=== PATIENT | male | born 1945 | race Caucasian/White ===

== ENCOUNTER 2017-11-12 05:54 | Inpatient (IN) | payer OTHER, BC ==
[~2017-11-12 05:54] MED LIST: CEFAZOLIN 2 GM in DEXTROSE 5%-WATER - 50 ML IVPB ONE; ROPIVICAINE 0.2%/MORPH PF/KETOROLAC - 51ML DISP.SYRINGE IA ONE; TRANEXAMIC ACID 1000 MG/10 ML VIAL IVPUSH ONE
[2017-11-12] MEDS: GABAPENTIN 300 MG CAPSULE (FP) PO ONE ×2 (06:30→12:43)
[2017-11-12] MEDS: oxyCODONE HCL 10 MG SUSTAINED ACTING TABLET PO ONE ×2 (06:30→12:44)
[2017-11-12] MEDS: CELECOXIB 200 MG CAPSULE PO ONE ×2 (06:30→12:43)
[2017-11-12] MEDS: PANTOPRAZOLE 40 MG TABLET (FP) PO ONE ×2 (06:30→12:46)
[2017-11-12 06:46] VITALS: BMI 17.4
--- NOTE | 2017-11-12 07:07 | HP ---
Admitting History and Physical - Admission Chief Complaint: right knee osteoarthritis x years History of Present Illness: 72-year-old male presenting in regard to his right knee. Long-standing history of right knee osteoarthritis. Patient complains of pain, limited range of motion , difficulty ambulating and difficulties with activities of daily living. Patient has failed conservative treatment options including PO medications, activity modification, exercise program, and injections. As patient has failed conservative treatment measures, patient would like to proceed with surgical intervention - right total knee arthroplasty, MAKOplasty. History Source: Patient - Past Medical History Cardiovascular: Yes: HTN, Hyperlipdemia - Past Surgical History Additional Past Surgical History: See written history & physical. - Smoking History Smoking history: Former smoker Have you smoked in the past 12 months: No If you are a former smoker, when did you quit?: 10 years ago - Alcohol/Substance Use Hx Alcohol Use: Yes (2-3 per day) Home Medications - Allergies Allergies/Adverse Reactions: Allergies Allergy/AdvReac Type Severity Reaction Status Date / Time No Known Allergies Allergy Verified 11/06/17 15:28 - Home Medications Home Medications: Ambulatory Orders Aspirin [ASA -] 81 mg PO DAILY 11/06/17 Atorvastatin Ca [Lipitor] 40 mg PO DAILY 11/06/17 Diclofenac Sodium [Diclofenac Sodium ER] 100 mg PO DAILY 11/06/17 Lisinopril/Hydrochlorothiazide [Lisinopril-Hctz 20-12.5 mg Tab] 1 each PO DAILY 11/06/17 Review of Systems - Review of Systems Musculoskeletal: reports: Crepitus (right knee), Decreased ROM (right knee), Joint Pain (right knee), Joint Swelling (right knee) Physical Examination Vital Signs: Vital Signs Temperature 98.0 F 11/12/17 06:43 Pulse Rate 84 11/12/17 06:43 Respiratory Rate 18 11/12/17 06:43 Blood Pressure 136/71 11/12/17 06:43 O2 Sat by Pulse Oximetry (%) 96 11/12/17 06:57 Constitutional: Yes: Well Nourished, No Distress Eyes: Yes: Conjunctiva Clear HENT: Yes: Atraumatic, Normocephalic Neck: Yes: Supple Cardiovascular: Yes: Regular Rate and Rhythm Respiratory: Yes: Regular Gastrointestinal: Yes: Soft ...Rectal Exam: Yes: Deferred Musculoskeletal: Yes: Joint Stiffness (right knee), Joint Swelling (right knee) Edema: RUE: Trace Assessment/Plan 72-year-old male presenting in regard to his right knee. Long-standing history of right knee osteoarthritis. Patient complains of pain, limited range of motion , difficulty ambulating and difficulties with activities of daily living. Patient has failed conservative treatment options including PO medication, activity modification, exercise program, and injections. As patient has failed conservative treatment measures, patient would like to proceed with surgical intervention. Pros, cons, risks, benefits, and alternatives of a right total knee arthroplasty, MAKOplasty were discussed at length with the patient. Patient confirms his understanding, and consents to proceed with a right total knee arthroplasty, MAKOplasty.
[2017-11-12] MEDS ORDERED: MIDAZOLAM HCL 2 MG/2 ML SINGLE DOSE VIAL ONE (07:35)
[2017-11-12] MEDS ORDERED: BUPIVACAINE LIPOSOME/PF (EXPAREL) 266 MG/20 ML VIAL ONE (07:35)
[2017-11-12] MEDS ORDERED: SODIUM CHLORIDE 0.9% P/F 10 ML VIAL IJ ONE (07:35)
[2017-11-12] MEDS ORDERED: BUPIVACAINE HCL/PF (5 MG/ML) 30 ML VIAL IJ ONE (07:35)
[2017-11-12] MEDS ORDERED: ROPIVICAINE 0.2%/MORPH PF/KETOROLAC - 51ML DISP.SYRINGE IA ONE ×2 (09:14→11:00)
[2017-11-12] MEDS ORDERED: TRANEXAMIC ACID 1000 MG/10 ML VIAL IVPB ONE ×2 (09:15→11:01)
[2017-11-12] MEDS ORDERED: VANCOMYCIN 1,000 MG VIAL (RESTRICTED TO ID ONLY) IVPB ONE ×2 (09:16→11:02)
[2017-11-12] MEDS ORDERED: KETOROLAC TROMETHAMINE 30 MG/1 ML VIAL ONE (11:58)
[2017-11-12] MEDS ORDERED: ACETAMINOPHEN INJECTION 100 ML IVPB ONE (11:58)
[2017-11-12] MEDS ORDERED: traMADol HCL 50 MG TABLET ONE (11:58)
--- NOTE | 2017-11-12 12:20 | OP ---
Operative Note - Note: Operative Date: 11/12/17 Pre-Operative Diagnosis: Right knee OA Operation: Right TKA Post-Operative Diagnosis: Same as Pre-op Surgeon: Gulshan Andersen Conveyor Worker: Thu Molina Anesthesia: Spinal Estimated Blood Loss (mls): 100
[2017-11-12] MEDS ORDERED: MAG HYDROX/AL HYDROX/SIMETH 30 ML UNIT-DOSE CUP PO PRN (12:22)
[2017-11-12] MEDS ORDERED: ONDANSETRON 4 MG/2 ML VIAL IVPUSH PRN (12:22)
[2017-11-12] MEDS ORDERED: MAGNESIUM HYDROX 2400MG/30ML ORAL SUSPENSION 30 ML CUP PO PRN (12:22)
[2017-11-12] MEDS ORDERED: LACTATED RINGERS SOLUTION 1,000 ML IV SCH (12:30)
[2017-11-12] MEDS: KETOROLAC TROMETHAMINE 30 MG/1 ML VIAL IVPUSH SCH ×3 (12:31→18:04)
[2017-11-12] MEDS: traMADol HCL 50 MG TABLET PO SCH ×3 (12:31→18:05)
[2017-11-12] MEDS: ACETAMINOPHEN 1000 MG/100 ML VIAL (NON FORMULARY) IVPB ONE ×2 (12:33→13:39)
[2017-11-12] MEDS ORDERED: oxyCODONE HCL 5 MG TABLET PO PRN ×2 (13:56)
[2017-11-12] MEDS: ACETAMINOPHEN 325 MG TABLET (FP) PO SCH ×2 (15:05→20:32)
[2017-11-12] MEDS: CEFAZOLIN 2 GM/D5W 2 GM/50 ML ML IVPB SCH (18:10)
[2017-11-12] MEDS ORDERED: DEXAMETHASONE SOD PHOSPHATE 10 MG/1 ML VIAL IVPB ONE (20:00)
[2017-11-12] MEDS: CELECOXIB 200 MG CAPSULE PO SCH (21:33)
[2017-11-12] MEDS: oxyCODONE HCL 10 MG SUSTAINED ACTING TABLET PO SCH (21:33)
[2017-11-12] MEDS: SENNOSIDES/DOCUSATE COMBO (SENNA PLUS) TABLET (UD) PO SCH (21:33)
[2017-11-12] MEDS: GABAPENTIN 300 MG CAPSULE (FP) PO SCH (21:33)
[2017-11-12] MEDS: ASCORBIC ACID 500 MG TABLET (FP) PO SCH (21:33)
[2017-11-13] MEDS: KETOROLAC TROMETHAMINE 30 MG/1 ML VIAL IVPUSH SCH ×2 (01:12→06:16)
[2017-11-13] MEDS: traMADol HCL 50 MG TABLET PO SCH ×4 (01:12→17:32)
[2017-11-13] MEDS: CEFAZOLIN 2 GM/D5W 2 GM/50 ML ML IVPB SCH (01:13)
[2017-11-13] MEDS: ACETAMINOPHEN 325 MG TABLET (FP) PO SCH ×4 (01:13→19:54)
[2017-11-13 08:53] LABS: ANION GAP 4 (8-16); BLOOD UREA NITROGEN 29 mg/dl (7-18); CALCIUM 8.5 mg/dl (8.4-10.2); CHLORIDE 101 mmol/L (98-107); CO2 24 mmol/L (22-28); CREATININE 1.6 mg/dl (0.6-1.3); GLUCOSE,RANDOM 150 mg/dl (74-106); POTASSIUM 4.6 mmol/L (3.5-5.1); SODIUM 129 mmol/L (136-145)
[2017-11-13 08:59] LABS: HEMATOCRIT 32.7 % (35.4-49); HEMOGLOBIN 11.1 GM/dl (11.7-16.9); MEAN CELL VOLUME 94.2 fl (80-96); MEAN PLT VOLUME 9.5 fl (7.5-11.1); PLATELET COUNT 238 K/MM3 (134-434); RBC 3.47 M/mm3 (4.00-5.60); RDW 12.1 % (11.9-15.9); WHITE BLOOD COUNT 10.3 K/mm3 (4.0-10.8)
[2017-11-13] MEDS: PANTOPRAZOLE 40 MG TABLET (FP) PO SCH (09:29)
[2017-11-13] MEDS: ASPIRIN 325 MG ENTERIC COATED TABLET (FP) PO SCH (09:31)
[2017-11-13] MEDS: GABAPENTIN 300 MG CAPSULE (FP) PO SCH ×2 (09:31→21:25)
[2017-11-13] MEDS: HYDROCHLOROTHIAZIDE 12.5 MG CAPSULE (FP) PO SCH (09:31)
[2017-11-13] MEDS: LISINOPRIL 20 MG TABLET (FP) PO SCH (09:31)
[2017-11-13] MEDS: MULTIVITAMINS (DAILY MVI) TABLET (FP) PO SCH (09:31)
[2017-11-13] MEDS: ASCORBIC ACID 500 MG TABLET (FP) PO SCH ×2 (09:31→21:26)
[2017-11-13] MEDS: CELECOXIB 200 MG CAPSULE PO SCH (09:31)
[2017-11-13] MEDS: SENNOSIDES/DOCUSATE COMBO (SENNA PLUS) TABLET (UD) PO SCH ×2 (09:33→21:25)
[2017-11-13] MEDS: oxyCODONE HCL 10 MG SUSTAINED ACTING TABLET PO SCH ×2 (09:35→21:26)
[2017-11-13] MEDS ORDERED: PATIENT'S OWN MEDICATION (NON-FORMULARY) (Lisinopril/Hydrochlorothiazide [Lisinopril-Hctz PO SCH (10:00)
--- NOTE | 2017-11-13 10:44 | PN ---
Progress Note, Physician Chief Complaint: day #1 s/p right TKR - Current Medication List Current Medications: Active Medications Acetaminophen (Tylenol -) 650 mg PO Q6H [facility] Stop: 11/15/17 13:59 Last Admin: 11/13/17 08:06 Dose: Not Given Al Hydroxide/Mg Hydroxide (Mylanta Oral Suspension -) 30 ml PO Q4H PRN PRN Reason: DYSPEPSIA Ascorbic Acid (Vitamin C -) 500 mg PO BID [facility] Last Admin: 11/13/17 09:31 Dose: 500 mg Aspirin (Ecotrin -) 325 mg PO DAILY [facility] Last Admin: 11/13/17 09:31 Dose: 325 mg Atorvastatin Calcium (Lipitor -) 40 mg PO [facility] Celecoxib (Celebrex -) 200 mg PO BID [facility] Last Admin: 11/13/17 09:31 Dose: 200 mg Gabapentin (Neurontin -) 300 mg PO BID [facility] Stop: 11/15/17 21:59 Last Admin: 11/13/17 09:31 Dose: 300 mg Hydrochlorothiazide (Hctz -) 12.5 mg PO DAILY [facility] Last Admin: 11/13/17 09:31 Dose: 12.5 mg Lisinopril (Prinivil) 20 mg PO DAILY [facility] Last Admin: 11/13/17 09:31 Dose: 20 mg Magnesium Hydroxide (Milk Of Magnesia -) 30 ml PO PRN PRN PRN Reason: CONSTIPATION Multivitamins/Minerals/Vitamin C (Tab-A-Vit -) 1 tab PO DAILY [facility] Last Admin: 11/13/17 09:31 Dose: 1 tab Ondansetron HCl (Zofran Injection) 4 mg IVPUSH Q6H PRN PRN Reason: NAUSEA Oxycodone HCl (Roxicodone -) 5 mg PO Q3H PRN PRN Reason: PAIN LEVEL 1-5 Oxycodone HCl (Roxicodone -) 10 mg PO Q3H PRN PRN Reason: PAIN LEVEL 6-10 Oxycodone HCl (Oxycontin -) 10 mg PO BID [facility] Stop: 11/15/17 13:56 Last Admin: 11/13/17 09:35 Dose: 10 mg Pantoprazole Sodium (Protonix -) 40 mg PO DAILY [facility] Last Admin: 11/13/17 09:29 Dose: 40 mg Senna/Docusate Sodium (Pericolace -) 2 tablet PO BID [facility] Last Admin: 11/13/17 09:33 Dose: 2 tablet Tramadol HCl (Ultram -) 50 mg PO Q6H [facility] Last Admin: 11/13/17 06:16 Dose: 50 mg - Objective Vital Signs: Vital Signs Temperature 98.0 F 11/13/17 06:34 Pulse Rate 80 11/13/17 06:34 Respiratory Rate 18 11/13/17 06:34 Blood Pressure 138/76 11/13/17 06:34 O2 Sat by Pulse Oximetry (%) 96 11/13/17 06:34 Labs: CBC, BMP 11/13/17 08:16 11/13/17 08:16 Assessment/Plan Ambulating- doing well. Pain is minimal, likely d/c today
[2017-11-13] MEDS ORDERED: ATORVASTATIN CA 40 MG TABLET (FP) PO SCH (22:00)
--- NOTE | 2017-11-13 22:38 | PN ---
Progress Note (short form) - Note Progress Note: Pt seen and examined. Doing well AVSS Selected Entries 11/13/17 20:18 Temperature 98.4 F Pulse Rate 66 Respiratory 18 Rate Blood Pressure 117/52 Laboratory Tests 11/13/17 11/13/17 08:16 08:16 WBC 10.3 Hgb 11.1 L Hct 32.7 L Plt Count 238 Sodium 129 L Potassium 4.6 Chloride 101 Carbon Dioxide 24 Anion Gap 4 L BUN 29 H Creatinine 1.6 H Random Glucose 150 H Gen: NAD RLE: c/d/i, NVID A/P s/p R TKA PT/OOB D/C in AM after PT
--- NOTE | 2017-11-13 22:43 | DS ---
Physical Examination Vital Signs: Vital Signs Temperature 98.4 F 11/13/17 20:18 Pulse Rate 66 11/13/17 20:18 Respiratory Rate 18 11/13/17 20:18 Blood Pressure 117/52 11/13/17 20:18 O2 Sat by Pulse Oximetry (%) 97 11/13/17 19:59 Labs: CBC, BMP 11/13/17 08:16 11/13/17 08:16 Discharge Summary Reason For Visit: RIGHT KNEE OSTEOARTHRITIS Current Active Problems Osteoarthritis of right knee (Acute) Procedures: Principal: right JAVIER TKA Hospital Course: Admitted for elective surgery. Procedure performed without complications. Pt received postoperative antibiotic prophylaxis and DVT ppx. Ambulated with physical therapy. Stable for discharge home with outpatient followup. Condition: Stable - Instructions Diet, Activity, Other Instructions: Dr. Andersen - Knee Replacement Instructions Keep the Aquacel dressing on until removed by Dr. Andersen in 10-14 days - it is antibacterial and waterproof and you can shower with it on. Call the office for a follow-up appointment with Dr. Andersen in 10-14 days. Take one Aspirin 325mg daily for 6 weeks to prevent blood clots in your legs. After 6 weeks go back to taking 81mg daily. Take Pantoprazole 40mg daily for 6 weeks to protect against heartburn and ulcers. Take Cephalexin (antibiotic) 3x/day for 10 days to help prevent skin infection. Take Celebrex 200mg once daily for 30 days to reduce swelling and inflammation. Take a multivitamin, stool softener, and extra vitamin C supplement daily. For pain: *Mild pain (1-3/10): Take 1 Tramadol tablet every 4 hours as needed. Moderate pain (4-6/10): Take 1 Tramadol tablet and 1 Percocet tablet every 4 hours as needed. Severe pain (7-10/10): Take 1 Tramadol tablet and 2 Percocet tablets every 4 hours as needed. Activity: You can put as much weight on the operative leg as you want. Right after you get home, there will be a physical therapist coming to your house to help you walk around and bend/straighten your knee. After your follow-up appointment, you will be sent for more intensive outpatient physical therapy which will include machines and equipment that the home therapist cannot bring to your house. Always use a walker or cane for balance and to prevent falls. Expect to see swelling/bruising from the operative site all the way down to your toes. Wear the compression stocking on the operative side during the day to minimize how much swelling there is in your foot/ankle. Don't wear the stocking at night. You don't have to wear a stocking on the other side. Disposition: [facility]NS/HOME HEALTH CARE - Home Medications Comprehensive Discharge Medication List: Ambulatory Orders Atorvastatin Ca [Lipitor] 40 mg PO DAILY 11/06/17 Diclofenac Sodium [Diclofenac Sodium ER] 100 mg PO DAILY 11/06/17 Lisinopril/Hydrochlorothiazide [Lisinopril-Hctz 20-12.5 mg Tab] 1 each PO DAILY 11/06/17 Ascorbic Acid [Vitamin C -] 500 mg PO BID tablet 11/13/17 Aspirin Coated [Ecotrin -] 325 mg PO DAILY tablet. 11/13/17 Cephalexin Monohydrate [Keflex -] 500 mg PO TID #30 capsule 11/13/17 Multivitamins [Multivit ([facility] Formulary)] 1 tab PO DAILY tab 11/13/17 Oxycodone HCl/Acetaminophen [Percocet 5-325 mg Tablet] 1 - 2 tab PO Q4H PRN #60 tablet MDD 10 11/13/17 Pantoprazole Sodium [Protonix -] 40 mg PO DAILY #40 tablet.ec 11/13/17 Sennosides/Docusate Sodium [Pericolace -] 2 tablet PO BID tablet 11/13/17 traMADol HCL [Ultram -] 50 mg PO Q4H PRN #42 tablet MDD 7 11/13/17
[2017-11-14] MEDS: traMADol HCL 50 MG TABLET PO SCH ×2 (02:03→05:52)
[2017-11-14] MEDS: ACETAMINOPHEN 325 MG TABLET (FP) PO SCH ×2 (05:50→08:44)
[2017-11-14 09:11] VITALS: BP 100/47; PULSE 85; TEMP 98.6
[2017-11-14] MEDS: ASCORBIC ACID 500 MG TABLET (FP) PO SCH (10:16)
[2017-11-14] MEDS: MULTIVITAMINS (DAILY MVI) TABLET (FP) PO SCH (10:16)
[2017-11-14] MEDS: SENNOSIDES/DOCUSATE COMBO (SENNA PLUS) TABLET (UD) PO SCH (10:16)
[2017-11-14] MEDS: PANTOPRAZOLE 40 MG TABLET (FP) PO SCH (10:16)
[2017-11-14] MEDS: LISINOPRIL 20 MG TABLET (FP) PO SCH (10:16)
[2017-11-14] MEDS: HYDROCHLOROTHIAZIDE 12.5 MG CAPSULE (FP) PO SCH (10:16)
[2017-11-14] MEDS: oxyCODONE HCL 10 MG SUSTAINED ACTING TABLET PO SCH (10:16)
[2017-11-14] MEDS: ASPIRIN 325 MG ENTERIC COATED TABLET (FP) PO SCH (10:16)
[2017-11-14] MEDS: GABAPENTIN 300 MG CAPSULE (FP) PO SCH (10:16)
--- NOTE | 2017-11-16 17:04 | PATH ---
Surgical Pathology Report Patient Name: KHAI RAGSDALE Med. Rec. #: [id number] /Age/Gender: 1945 (Age: 72) / M Account: [id number] Location: [facility] [place] MED-SURG Taken: 11/12/2017 Received: 11/13/2017 Reported: 11/16/2017 Physicians: Gulshan Andersen M.D. Specimen(s) Received RIGHT KNEE BONE Clinical History Right knee osteoarthritis Final Diagnosis BONE, KNEE, RIGHT, TOTAL KNEE REPLACEMENT MAKOPLASTY: BONE WITH DEGENERATIVE JOINT DISEASE AND DENSE FIBROCONNECTIVE TISSUE. Electronically Signed Chely Johnson M.D. Gross Description Received in formalin labeled "right knee bones" is a 10 x 9 x 2 cm aggregate of multiple portions of bone and soft tissue. The tibial plateau measures 8 x 6 x 1 cm. There are focal areas of eburnation identified. The articular surface is de souza-yellow and diffusely granular. The underlying trabecular bone is yellow and hard. [employer] Professor sections submitted in one cassette, following decalcification. REGINA/11/14/2017 kishan/11/14/2017
== END 2017-11-14 13:00 | disposition home health service (06) | DRG 470 ==
LOC: FM/S 05:54
PROVIDERS: ADMIT Student in an Organized Health Care Education/Training Program; ATTEND Student in an Organized Health Care Education/Training Program
PROC: 8E0Y0CZ Robotic Assisted Procedure of Lower Extremity, Open Approach (ICD-10-PCS; 2017-11-12)
PROC: 0SRC0JZ Replacement of Right Knee Joint with Synthetic Substitute, Open Approach (ICD-10-PCS; principal; 2017-11-12 09:05)
DX: M17.11 Unilateral primary osteoarthritis, right knee (principal); I10 Essential (primary) hypertension; E78.5 Hyperlipidemia, unspecified; Z87.891 Personal history of nicotine dependence
CPT/HCPCS: 36415; 73560-TC-RT-FY; 80048; 85027; 88304-TC; 88311-TC; 94760; 97116-GP; 97162-GP; J0131; J1100

== ENCOUNTER 2018-10-25 09:50 | Emergency (ER) | payer OTHER, BC ==
[2018-10-25 10:28] VITALS: BP 140/73; PULSE 92; TEMP 98.8; BMI 30.9
[2018-10-25] MEDS ORDERED: FAMOTIDINE 20 MG TABLET PO ONE (11:16)
[2018-10-25] MEDS ORDERED: LORATADINE 10 MG TABLET PO ONE (11:16)
[2018-10-25] MEDS ORDERED: predniSONE 20 MG TABLET (UD) PO ONE (11:16)
--- NOTE | 2018-10-25 11:22 | PDOC ---
History of Present Illness - General Chief Complaint: Edema Stated Complaint: LIP & R FACE SWELLING Time Seen by Provider: 10/25/18 10:24 Past History - Past Medical History Allergies/Adverse Reactions: Allergies Allergy/AdvReac Type Severity Reaction Status Date / Time No Known Allergies Allergy Verified 10/25/18 10:17 Home Medications: Ambulatory Orders Atorvastatin Ca [Lipitor] 40 mg PO DAILY 11/06/17 Lisinopril/Hydrochlorothiazide [Lisinopril-Hctz 20-12.5 mg Tab] 1 each PO DAILY 11/06/17 Methylprednisolone [Medrol Dose Camilo] 4 mg PO ASDIR #21 tablet 10/25/18 Anemia: No Asthma: No Cancer: No Cardiac Disorders: No CVA: No COPD: No CHF: No Dementia: No Diabetes: No GI Disorders: No Disorders: No HTN: Yes Hypercholesterolemia: Yes Liver Disease: No Seizures: No Thyroid Disease: No - Surgical History Appendectomy: Yes Orthopedic Surgery: Yes (right and left knee arthroscopy) - Suicide/Smoking/Psychosocial Hx Smoking History: Former smoker Have you smoked in the past 12 months: No If you are a former smoker, when did you quit?: 10 years ago Information on smoking cessation initiated: No Hx Alcohol Use: Yes (DAILY) Drug/Substance Use Hx: No Substance Use Type: Alcohol Hx Substance Use Treatment: No *Physical Exam - Vital Signs Last Vital Signs Temp Pulse Resp BP Pulse Ox 98.8 F 92 H 16 140/73 97 10/25/18 10:05 10/25/18 10:05 10/25/18 10:05 10/25/18 10:05 10/25/18 10:05 *DC/Admit/Observation/Transfer Diagnosis at time of Disposition: Allergic reaction Qualifiers: Encounter type: initial encounter Qualified Code(s): T78.40XA - Allergy, unspecified, initial encounter - Discharge Dispostion Disposition: HOME Condition at time of disposition: Stable Decision to Admit order: No - Referrals Referrals: Zeynep Ball MD [Primary Care Provider] - 24 hours - Patient Instructions Printed Discharge Instructions: DI for General Allergic Reactions Additional Instructions: Claritin 10 mg once daily in the morning Benadryl 25 mg at bedtime Pepcid (famotidine) 20 mg every 12 hours Medrol Dosepak as prescribed Return to ER immediately if there is increased swelling or irritation of the throat, tongue, inside of the mouth, lips, or other parts of the face,, or difficulty swallowing or breathing. Or if there is wheezing or noisy breathing. - Post Discharge Activity
[2018-10-25] MEDS ORDERED: predniSONE 20 MG TABLET (UD) ONE (11:28)
[2018-10-25] MEDS ORDERED: LORATADINE 10 MG TABLET ONE (11:28)
[2018-10-25] MEDS ORDERED: FAMOTIDINE 20 MG TABLET ONE (11:28)
== END 2018-10-25 11:36 | disposition home or self-care (01) ==
LOC: FER 09:50
DX: T78.40XA Allergy, unspecified, initial encounter (principal); Z87.891 Personal history of nicotine dependence; I10 Essential (primary) hypertension; E78.00 Pure hypercholesterolemia, unspecified
CPT/HCPCS: 99282-25

== ENCOUNTER 2019-06-23 09:04 | Inpatient (IN) | payer OTHER, BC ==
[2019-06-09 12:15] VITALS: BMI 31.5
--- NOTE | 2019-06-23 07:43 | HP ---
Admitting History and Physical - Admission Chief Complaint: left knee osteoarthritis x years History of Present Illness: 74 year old male presents in regard to their left knee. Long-standing history of left knee osteoarthritis. Patient complains of pain, limited range of motion , difficulty ambulating, and difficulty with activities of daily living. Patient has failed conservative treatment options including PO medications, activity modification, injections, and exercise programs. At this point, patient like to proceed with surgical intervention, left total knee arthroplasty MAKOplasty. History Source: Patient - Past Medical History Cardiovascular: Yes: HTN, Hyperlipdemia Musculoskeletal: Yes: Osteoarthritis - Past Surgical History Additional Past Surgical History: See written history & physical. - Smoking History Smoking history: Former smoker Have you smoked in the past 12 months: No Aproximately how many cigarettes per day: 20 If you are a former smoker, when did you quit?: 10 years ago - Alcohol/Substance Use Hx Alcohol Use: Yes (DAILY) Home Medications - Allergies Allergies/Adverse Reactions: Allergies Allergy/AdvReac Type Severity Reaction Status Date / Time No Known Allergies Allergy Verified 06/09/19 12:05 - Home Medications Home Medications: Ambulatory Orders Atorvastatin Ca [Lipitor] 40 mg PO DAILY 11/06/17 Lisinopril/Hydrochlorothiazide [Lisinopril-Hctz 20-12.5 mg Tab] 1 each PO DAILY 11/06/17 Review of Systems - Review of Systems Musculoskeletal: reports: Crepitus (left knee), Decreased ROM (left knee), Joint Pain (left knee), Joint Swelling (left knee) Physical Examination Constitutional: Yes: Well Nourished, No Distress Eyes: Yes: Conjunctiva Clear HENT: Yes: Atraumatic Neck: Yes: Supple Cardiovascular: Yes: Regular Rate and Rhythm Respiratory: Yes: Regular Gastrointestinal: Yes: Soft ...Rectal Exam: Yes: Deferred Musculoskeletal: Yes: Joint Stiffness (left knee), Joint Swelling (left knee) Assessment/Plan 74 year old male presents in regard to their left knee. Long-standing history of left knee osteoarthritis. Patient complains of pain, limited range of motion , difficulty ambulating, and difficulty with activities of daily living. Patient has failed conservative treatment options including PO medications, activity modification, injections, and exercise programs. At this point, patient like to proceed with surgical intervention, left total knee arthroplasty MAKOplasty. Pros, cons, risks, benefits, and alternatives of a left total knee arthroplasty MAKOplasty were discussed with the patient at length. Patient confirms their understanding and consents to proceed with a left total knee arthroplasty MAKOplasty.
[~2019-06-23 09:04] MED LIST changes: +CELECOXIB 200 MG CAPSULE PO ONE; +PANTOPRAZOLE 40 MG TABLET (FP) PO ONE; -ROPIVICAINE 0.2%/MORPH PF/KETOROLAC - 51ML DISP.SYRINGE IA ONE
[2019-06-23] MEDS: oxyCODONE HCL 10 MG SUSTAINED ACTING TABLET PO ONE ×2 (10:15→17:40)
[2019-06-23] MEDS ORDERED: CELECOXIB 200 MG CAPSULE PO ONE (10:24)
[2019-06-23] MEDS ORDERED: TRANEXAMIC ACID 1000 MG/10 ML VIAL IVPUSH ONE (10:24)
[2019-06-23] MEDS ORDERED: GABAPENTIN 300 MG CAPSULE (FP) PO ONE (10:24)
[2019-06-23] MEDS ORDERED: CEFAZOLIN 2 GM in DEXTROSE 5%-WATER - 50 ML IVPB ONE (10:24)
[2019-06-23] MEDS ORDERED: BUPIVACAINE LIPOSOME/PF (EXPAREL) 266 MG/20 ML VIAL ONE (11:11)
[2019-06-23] MEDS ORDERED: MIDAZOLAM HCL 2 MG/2 ML SINGLE DOSE VIAL ONE (11:11)
[2019-06-23] MEDS ORDERED: SODIUM CHLORIDE 0.9% P/F 10 ML VIAL IJ ONE (11:12)
[2019-06-23] MEDS ORDERED: PROPOFOL 20 ML ONE ×3 (11:16)
[2019-06-23] MEDS ORDERED: ceFAZolin SODIUM 1 GM VIAL ONE (11:16)
[2019-06-23] MEDS ORDERED: VANCOMYCIN 1,000 MG VIAL (RESTRICTED TO ID ONLY) ONE (11:16)
[2019-06-23] MEDS ORDERED: fentaNYL CITRATE 250 MCG/5 ML VIAL ONE (11:37)
[2019-06-23] MEDS ORDERED: ePHEDrine SULFATE 50 MG/1 ML AMPULE ONE (13:46)
[2019-06-23] MEDS ORDERED: ONDANSETRON 4 MG/2 ML VIAL IVPUSH PRN ×2 (14:55→17:12)
[2019-06-23] MEDS ORDERED: oxyCODONE HCL 5 MG TABLET PO PRN ×2 (14:56)
[2019-06-23] MEDS ORDERED: LACTATED RINGERS SOLUTION 1,000 ML IV SCH ×2 (15:00→17:15)
--- NOTE | 2019-06-23 16:54 | SURG ---
Surgery Jack Prizer Note Jack Prizer: Alexandro Brush PA-C Date of Service: 06/23/19 Diagnosis: Left knee osteoarthritis Procedure: Left total knee farzaneh assisted arthroplasty I was present for the entirety of the operative procedure. For further detail, please refer to operative report. Visit type - Case Type Case Type: Scheduled - Emergency Emergency Visit: No - New patient This patient is new to me today: Yes Date on this admission: 06/23/19 - Critical Care Critical Care patient: No
[2019-06-23] MEDS: ACETAMINOPHEN 1000 MG/100 ML VIAL (NON FORMULARY) IVPB ONE (16:58)
[2019-06-23] MEDS ORDERED: ACETAMINOPHEN INJECTION 100 ML IVPB ONE (17:05)
[2019-06-23] MEDS ORDERED: KETOROLAC TROMETHAMINE 30 MG/1 ML VIAL ONE (17:05)
[2019-06-23] MEDS: KETOROLAC TROMETHAMINE 30 MG/1 ML VIAL IVPUSH SCH ×2 (17:05→23:22)
[2019-06-23] MEDS ORDERED: traMADol HCL 50 MG TABLET ONE (17:05)
[2019-06-23] MEDS ORDERED: MAGNESIUM HYDROX 2400MG/30ML ORAL SUSPENSION 30 ML CUP PO PRN (17:12)
[2019-06-23] MEDS ORDERED: MAG HYDROX/AL HYDROX/SIMETH 30 ML UNIT-DOSE CUP PO PRN (17:12)
--- NOTE | 2019-06-23 17:34 | OP ---
Operative Note - Note: Operative Date: 06/23/19 Pre-Operative Diagnosis: left knee OA Operation: Left JAVIER TKA Post-Operative Diagnosis: Same as Pre-op Surgeon: Gulshan Andersen Digital Art Director: Alexandro Brush Anesthesia: Spinal Estimated Blood Loss (mls): 200
[2019-06-23] MEDS: traMADol HCL 50 MG TABLET PO SCH ×2 (17:45→23:22)
[2019-06-23] MEDS: CEFAZOLIN 1 GM/D5W 1 GM/50 ML BAG IVPB SCH (17:58)
[2019-06-23] MEDS: ACETAMINOPHEN 325 MG TABLET (FP) PO SCH (21:15)
[2019-06-23] MEDS: GABAPENTIN 300 MG CAPSULE (FP) PO SCH (21:17)
[2019-06-23] MEDS: CELECOXIB 200 MG CAPSULE PO SCH (21:17)
[2019-06-23] MEDS: SENNOSIDES/DOCUSATE COMBO (SENNA PLUS) TABLET (UD) PO SCH (21:18)
[2019-06-23] MEDS: ASCORBIC ACID 500 MG TABLET (FP) PO SCH (21:18)
--- NOTE | 2019-06-23 21:39 | SPEC ---
DATE OF OPERATION: 06/23/2019 PREOPERATIVE DIAGNOSIS: Left knee osteoarthritis. POSTOPERATIVE DIAGNOSIS: Left knee osteoarthritis. PROCEDURE: Left total knee replacement with MAKOplasty robotic navigation. ATTENDING: Melany Corrigan MD GENERAL MILLING SUPERINTENDENT: Alexandro Brush PA-C ANESTHESIA: Spinal plus sedation. ESTIMATED BLOOD LOSS: 200 mL. COMPLICATIONS: None. DISPOSITION: The patient was transferred to the PACU in stable condition. IMPLANTS USED: Charley Triathlon size 8 femoral component, size 7 tibial component, 38-mm patellar component, an 11-mm posterior-stabilized polyethylene component. INDICATIONS: This is a 74-year-old male who presented to the office complaining of severe bilateral knee pain. He was seen and examined by Dr. Corrigan and diagnosed with severe bilateral knee osteoarthritis. The patient was initially treated non-operatively with injections and medications and physical therapy, but continued to have severe pain and ambulatory dysfunction. He was, therefore, indicated for total knee replacements. He underwent a right total knee replacement in 2018 and did very well postoperatively. His left knee continued to be symptomatic; so, eventually, he decided to proceed with a left total knee replacement. The risks, benefits, and alternatives to this procedure were explained to the patient in great detail, and he elected to proceed with the surgery. On the day of surgery, the patient was taken to the operating room and placed on the OR table. Spinal anesthesia was administered by the anesthesiologist. The patient was then positioned supine on the table and all bony prominences were padded. The knee was then prepped and draped in the usual sterile fashion and intravenous antibiotics were given for infection prophylaxis. A surgical time-out was then performed with the team, and the patients identity, procedure, side, availability of implants, and the administration of antibiotics was confirmed. With the knee flexed, a midline incision was made and carried down through the subcutaneous fat to the underlying retinaculum. A medial parapatellar arthrotomy was performed. This was followed by a subperiosteal dissection of the tissue off the proximal, medial tibia. A portion of fat pad was removed from under the patellar tendon, and a small portion of fat was excised off the distal supracondylar femur. Electrocautery and an Aquamantys bipolar sealing device were used to achieve hemostasis. The knee was then flexed further and the anterior horn of the lateral meniscus was released from the midline. Next, the anterior and posterior cruciate ligaments were transected. Grade 4 changes were noted diffusely throughout the knee. Femoral and tibial checkpoints were then placed in the appropriate location using a mallet. Two parallel bicortical self-drilling pins were placed in the tibial diaphysis after making stab incisions and bluntly dissecting down to bone. Two pins were then placed in the distal supracondylar femur. The [employer] navigation arrays were then attached to both the femoral and tibial pins and the lower extremity was then registered to the robotic navigation device using various joint movements, as well as inputting several dozen reference points. The knee was then taken through a full range of motion with a corrective force applied. Alignment in varus/valgus as well as flexion/extension and soft tissue balance was measured in various positions. The navigation device showed a numerical and graphic representation of the soft tissue balance. The components were repositioned virtually using the software until optimal soft tissue balance was achieved on screen. Once this was accomplished, the final plan was saved and sent to the robot. Self-retaining retractors were then placed at the joint line for exposure and protection of the collateral ligaments. The robot was brought into the sterile field and registered with the navigation device. The robotic arm with attached oscillating saw blade was then used to perform femoral and tibial bone cuts as per the saved software plan. The femoral box cut was made using the appropriately sized manual cutting guide. The knee was then irrigated. Trial components were placed and the knee was taken through a full range of motion to assess soft tissue balance and alignment. The range of motion was found to be excellent and the soft tissue balance was optimal and according to plan. The knee was then put into extension and the patella everted. The synovium around the patella was circumscribed with electrocautery. A caliper was used to measure the patellar thickness and a saw was then used to resect the patella at the chondro-osseous junction. The cut surface was then sized and drilled for the appropriate patellar button, with care taken to medialize it. A trial patella was then placed and the knee was again taken through a full range of motion. The knee was found to have both good balance and good patellar tracking. All of the components were removed except the tibial base plate. The appropriate instrumentation was used to drill and punch the proximal tibia for the keel of the final component. All bony surfaces were then cleaned with pulsatile lavage and dried. Bone cement was then prepared on the back table, and final components were cemented in place in the usual fashion. Extruded cement was removed. The polyethylene trial was placed, the knee was put into extension, and axial pressure was applied for compression while the cement hardened. The patellar button was similarly cemented into place. Once the cement had hardened, the knee was taken through a full range of motion to assess stability, balance, and patellar tracking. This was found to be optimal and the trial polyethylene was exchanged for the appropriately sized real implant. The wound was then thoroughly irrigated with normal saline. A 3-minute dilute Betadine lavage was performed. The knee was again irrigated using a pulsatile lavage device. A periarticular injection was used to locally infiltrate the capsular tissues surrounding the implant and prosthesis. Then No. 1 Polysorb and 0 VLoc 180 barbed sutures were used to close the arthrotomy. Then No. 1 Polysorb and 2-0 VLoc 90 sutures were used in the subcutaneous tissues. Then 4-0 undyed Vicryl and Dermabond skin adhesive was used to close the stab incisions made for the navigation pins. The skin was closed using both 3-0 VLoc 90 suture in a running subcuticular fashion and Dermabond skin adhesive. Once this was completed a sterile Aquacel dressing and compressive Emmanuel-wrap was applied. The patient was then awakened and taken to the PACU in stable condition. MELANY CORRIGAN M.D. [id number]
[2019-06-24] MEDS ORDERED: DEXAMETHASONE SOD PHOSPHATE 10 MG/1 ML VIAL IVPB ONE
[2019-06-24] MEDS: CEFAZOLIN 1 GM/D5W 1 GM/50 ML BAG IVPB SCH (01:47)
[2019-06-24] MEDS: ACETAMINOPHEN 325 MG TABLET (FP) PO SCH ×5 (03:24→22:00)
[2019-06-24] MEDS: traMADol HCL 50 MG TABLET PO SCH ×5 (05:43→22:23)
[2019-06-24] MEDS: KETOROLAC TROMETHAMINE 30 MG/1 ML VIAL IVPUSH SCH ×3 (05:44→12:23)
[2019-06-24] MEDS: ACETAMINOPHEN 1000 MG/100 ML VIAL (NON FORMULARY) IVPB ONE (07:10)
[2019-06-24] MEDS: ASPIRIN 325 MG TABLET PO SCH (07:58)
[2019-06-24 08:39] LABS: HEMATOCRIT 39.4 % (35.4-49); MCH 31.7 pg (25.7-33.7); MCHC 32.9 g/dl (32.0-35.9); MEAN CELL VOLUME 96.4 fl (80-96); MEAN PLT VOLUME 9.9 fl (7.5-11.1); PLATELET COUNT 260 K/MM3 (134-434); RBC 4.09 M/mm3 (4.00-5.60); RDW 12.3 % (11.9-15.9); WHITE BLOOD COUNT 8.7 K/mm3 (4.0-10.8)
[2019-06-24] MEDS: ASCORBIC ACID 500 MG TABLET (FP) PO SCH ×2 (09:42→22:04)
[2019-06-24] MEDS: CELECOXIB 200 MG CAPSULE PO SCH (09:42)
[2019-06-24] MEDS: GABAPENTIN 300 MG CAPSULE (FP) PO SCH ×2 (09:42→22:03)
[2019-06-24] MEDS: SENNOSIDES/DOCUSATE COMBO (SENNA PLUS) TABLET (UD) PO SCH ×2 (09:42→22:03)
[2019-06-24] MEDS: MULTIVITAMINS (DAILY MVI) TABLET (FP) PO SCH (09:48)
[2019-06-24] MEDS: LISINOPRIL 20 MG TABLET (FP) PO SCH (09:48)
[2019-06-24] MEDS: PANTOPRAZOLE 40 MG TABLET (FP) PO SCH (09:48)
[2019-06-24] MEDS: HYDROCHLOROTHIAZIDE 12.5 MG CAPSULE (FP) PO SCH (09:48)
[2019-06-24] MEDS ORDERED: PATIENT'S OWN MEDICATION (NON-FORMULARY) (Lisinopril/Hydrochlorothiazide [Lisinopril-Hctz PO SCH (10:00)
[2019-06-24 10:55] LABS: BLOOD UREA NITROGEN 21.3 mg/dL (7-18); CALCIUM 9.3 mg/dL (8.5-10.1); CREATININE 1.5 mg/dL (0.55-1.3); POTASSIUM 4.6 mmol/L (3.5-5.1)
--- NOTE | 2019-06-24 13:46 | PN ---
Progress Note (short form) - Note Progress Note: ANESTHESIA POSTOP 74 YO MALE POD#1 S/P L TOTAL KNEE REPLACEMENT Patient sitting in chair. Pain adequately controlled. Tolerating PO VSS, Afebrile Continue current care. Encouraged IS and active participation in PT. No anesthetic complications.
--- NOTE | 2019-06-24 21:32 | PN ---
Progress Note (short form) - Note Progress Note: Pt seen and examined. Doing well. AVSS Selected Entries 06/24/19 18:00 Temperature 98.5 F Pulse Rate 78 Respiratory 18 Rate Blood Pressure 133/60 O2 Sat by Pulse 96 Oximetry (%) Oxygen Delivery Room Air Method Laboratory Tests 06/24/19 06/24/19 07:25 07:25 WBC 8.7 Hgb 13.0 Hct 39.4 D Plt Count 260 Sodium 136 Potassium 4.6 Chloride 101 Carbon Dioxide 26 Anion Gap 9 BUN 21.3 H Creatinine 1.5 H Est GFR (CKD-EPI)AfAm 52.77 Est GFR (CKD-EPI)NonAf 45.53 Random Glucose 152 H Calcium 9.3 Gen: NAD LLE: c/d/i, NVID A/P POD#1 s/p L JAVIER TKA PT/OOB - WBAT LLE D/C home in AM
--- NOTE | 2019-06-24 21:36 | DS ---
Physical Examination Vital Signs: Vital Signs Temperature 98.5 F 06/24/19 18:00 Pulse Rate 78 06/24/19 18:00 Respiratory Rate 18 06/24/19 18:00 Blood Pressure 133/60 06/24/19 18:00 O2 Sat by Pulse Oximetry (%) 96 06/24/19 18:00 Labs: CBC, BMP 06/24/19 07:25 06/24/19 07:25 Discharge Summary Problems reviewed: Yes Reason For Visit: LEFT KNEE OSTEOARTHRITIS Current Active Problems Osteoarthritis of left knee (Acute) Procedures: Principal: left JAVIER TKA Hospital Course: Admitted for elective surgery. Procedure performed without complications. Pt received postoperative antibiotic prophylaxis and DVT ppx. Ambulated with physical therapy. Stable for discharge home with outpatient followup. Condition: Stable - Instructions Diet, Activity, Other Instructions: Dr. Andersen - Knee Replacement Instructions Keep the Aquacel dressing on until removed by Dr. Andersen in the office - it is antibacterial and waterproof and you can shower with it on. Call the office for a follow-up appointment with Dr. Andersen in 2 weeks. Take one Aspirin 325mg daily for 6 weeks to prevent blood clots in your legs. Take one Pantoprazole 40mg daily for 6 weeks to protect against heartburn and ulcers. Take Cephalexin (antibiotic) 3x/day for 10 days to help prevent skin infection. Take a multivitamin, stool softener, and extra Vitamin C supplement daily. For pain: *Mild pain (1-3/10): Take 1 Tramadol tablet every 4 hours as needed. Moderate pain (4-6/10): Take 1 Tramadol tablet and 1 Percocet tablet every 4 hours as needed. Severe pain (7-10/10): Take 1 Tramadol tablet and 2 Percocet tablets every 4 hours as needed. Activity: You can put as much weight on the operative leg as you want. Right after you get home, there will be a physical therapist coming to your house to help you walk around and bend/straighten your knee. After your follow-up appointment, you will be sent for more intensive outpatient physical therapy which will include machines and equipment that the home therapist cannot bring to your house. Always use a walker or cane for balance and to prevent falls. Expect to see swelling/bruising from the operative site all the way down to your toes. Wear the compression stocking on the operative side during the day to minimize how much swelling there is in your foot/ankle. Don't wear the stocking at night. You don't have to wear a stocking on the other side. Disposition: [facility]NS/HOME HEALTH CARE - Home Medications Comprehensive Discharge Medication List: Ambulatory Orders Atorvastatin Ca [Lipitor] 40 mg PO DAILY 11/06/17 Lisinopril/Hydrochlorothiazide [Lisinopril-Hctz 20-12.5 mg Tab] 1 each PO DAILY 11/06/17 Ascorbic Acid [Vitamin C -] 500 mg PO BID tablet 06/24/19 Aspirin [ASA -] 325 mg PO DAILY@0800 tablet 06/24/19 Cephalexin Monohydrate [Keflex -] 500 mg PO TID #30 capsule 06/24/19 Multivitamins [Multivit ([facility] Formulary)] 1 tab PO DAILY tab 06/24/19 Oxycodone HCl/Acetaminophen [Percocet 5-325 mg Tablet] 1 - 2 tab PO Q4H PRN #60 tablet MDD 10 06/24/19 Pantoprazole Sodium [Protonix -] 40 mg PO DAILY #40 tablet.ec 06/24/19 Sennosides/Docusate Sodium [Pericolace -] 2 tablet PO BID tablet 06/24/19 traMADol HCL [Ultram -] 50 mg PO Q4H PRN #42 tablet MDD 6 06/24/19
[2019-06-24] MEDS ORDERED: ATORVASTATIN CA 40 MG TABLET (FP) PO SCH (22:00)
[2019-06-25] MEDS: ACETAMINOPHEN 325 MG TABLET (FP) PO SCH ×2 (03:11→09:26)
[2019-06-25] MEDS: traMADol HCL 50 MG TABLET PO SCH (05:48)
[2019-06-25 07:58] LABS: HEMATOCRIT 32.5 % (35.4-49); HEMOGLOBIN 11.1 GM/dl (11.7-16.9); MCH 33.1 pg (25.7-33.7); MCHC 34.3 g/dl (32.0-35.9); MEAN CELL VOLUME 96.3 fl (80-96); MEAN PLT VOLUME 9.8 fl (7.5-11.1); PLATELET COUNT 212 K/MM3 (134-434); RBC 3.37 M/mm3 (4.00-5.60); RDW 12.5 % (11.9-15.9); WHITE BLOOD COUNT 11.5 K/mm3 (4.0-10.8)
[2019-06-25] MEDS: MULTIVITAMINS (DAILY MVI) TABLET (FP) PO SCH (09:27)
[2019-06-25] MEDS: PANTOPRAZOLE 40 MG TABLET (FP) PO SCH (09:27)
[2019-06-25] MEDS: LISINOPRIL 20 MG TABLET (FP) PO SCH (09:27)
[2019-06-25] MEDS: SENNOSIDES/DOCUSATE COMBO (SENNA PLUS) TABLET (UD) PO SCH (09:27)
[2019-06-25] MEDS: ASPIRIN 325 MG TABLET PO SCH (09:27)
[2019-06-25] MEDS: HYDROCHLOROTHIAZIDE 12.5 MG CAPSULE (FP) PO SCH (09:28)
[2019-06-25] MEDS: ASCORBIC ACID 500 MG TABLET (FP) PO SCH (09:28)
[2019-06-25] MEDS: GABAPENTIN 300 MG CAPSULE (FP) PO SCH (09:30)
[2019-06-25 11:24] VITALS: BP 120/68; PULSE 74; TEMP 98.8
--- NOTE | 2019-06-26 10:32 | PATH ---
Surgical Pathology Report Patient Name: KHAI RAGSDALE Med. Rec. #: [id number] /Age/Gender: 1945 (Age: 74) / M Account: [id number] Location: [facility] MED-SURG Taken: 06/23/2019 Received: 06/23/2019 Reported: 06/26/2019 Physicians: Gulshan Andersen M.D. Specimen(s) Received BONE & TISSUE LEFT KNEE Clinical History Osteoarthritis left knee Final Diagnosis BONE AND SOFT TISSUE, LEFT KNEE, REPLACEMENT: DEGENERATIVE JOINT DISEASE. Electronically Signed Royal Lora M.D. Gross Description Received in formalin labeled "bone and tissue left knee," is a 12.5 x 10.5 x 2.4 cm aggregate of multiple portions of bone and soft tissue. The tibial plateau measures 8.8 x 6.8 x 2.0 cm. There are multiple areas of eburnation present, measuring up to 1.0 cm in greatest dimension. The remaining articular surfaces are de souza-brown and diffusely granular. The underlying trabecular bone is yellow and hard. [employer] sections are submitted in one cassette, following decalcification. /06/25/2019 [facility]06/25/2019
== END 2019-06-25 12:16 | disposition home health service (06) | DRG 470 ==
LOC: FM/S 09:04
PROVIDERS: ADMIT Student in an Organized Health Care Education/Training Program; ATTEND Student in an Organized Health Care Education/Training Program
PROC: 8E0Y0CZ Robotic Assisted Procedure of Lower Extremity, Open Approach (ICD-10-PCS; 2019-06-23)
PROC: 0SRD069 Replacement of Left Knee Joint with Oxidized Zirconium on Polyethylene Synthetic Substitute, Cemented, Open Approach (ICD-10-PCS; principal; 2019-06-23 14:04)
DX: M17.12 Unilateral primary osteoarthritis, left knee (principal); I10 Essential (primary) hypertension; E78.5 Hyperlipidemia, unspecified
CPT/HCPCS: 36415; 73560-TC-LT-FY; 80048; 85027; 94760; 97116-GP; 97163-GP; J0131; J1100

== ENCOUNTER 2023-05-22 10:52 | Emergency (ER) | payer OTHER, BC ==
[2023-05-22 11:00] VITALS: BP 147/84; PULSE 95; RESP 18; TEMP 99; BMI 32.3
== END 2023-05-22 12:58 | disposition home or self-care (01) ==
LOC: FER 10:52
DX: M25.561 Pain in right knee (principal); R22.41 Localized swelling, mass and lump, right lower limb; S89.91XA Unspecified injury of right lower leg, initial encounter; W01.0XXA Fall on same level from slipping, tripping and stumbling without subsequent striking against object, initial encounter; Z96.651 Presence of right artificial knee joint
CPT/HCPCS: 73562-TC-RT-FY; 99283-25

== ENCOUNTER 2023-06-24 12:32 | Inpatient (IN) | payer OTHER, BC ==
[2023-06-24] MEDS ORDERED: ACETAMINOPHEN 325 MG TABLET (FP) PO ONE (13:05)
[2023-06-24] MEDS ORDERED: ACETAMINOPHEN 325 MG TABLET (FP) ONE (13:15)
[2023-06-24] MEDS ORDERED: ACETAMINOPHEN 500 MG TABLET (FP) ONE (18:25)
[2023-06-24] MEDS ORDERED: ATORVASTATIN CA 20 MG TABLET (FP) ONE (18:25)
[2023-06-24] MEDS: ACETAMINOPHEN 500 MG TABLET (FP) PO SCH (18:28)
[2023-06-24] MEDS: ATORVASTATIN CA 40 MG TABLET (FP) PO SCH (18:28)
[2023-06-24 19:57] VITALS: BMI 31.7
[2023-06-25] MEDS: KETOROLAC TROMETHAMINE 10 MG TABLET PO SCH ×4 (00:45→22:00)
[2023-06-25] MEDS: ACETAMINOPHEN 500 MG TABLET (FP) PO SCH ×3 (01:21→18:18)
[2023-06-25 09:13] LABS: HEMATOCRIT 46.2 % (35.4-49); HEMOGLOBIN 15.3 G/dL (11.7-16.9); MCHC 33.1 g/dl (32.0-35.9); MEAN CELL VOLUME 96.7 fl (80-96); MEAN PLT VOLUME 9.6 fl (7.5-11.1); PLATELET COUNT 252.4 10^3/uL (134-434); RBC 4.78 10^6/uL (4.00-5.60); WHITE BLOOD COUNT 8.3 10^3/uL (4.0-10.8)
[2023-06-25 09:42] LABS: CALCIUM 9.8 mg/dl (8.5-10.1); PHOSPHOROUS 4.8 (2.5-4.9)
[2023-06-25] MEDS: ENOXAPARIN NA (PORCINE) 40 MG/0.4 ML DISP.SYRIN SQ SCH (09:50)
[2023-06-25] MEDS: POLYETHYLENE GLYCOL (HEALTHYLAX) 3350 17 GM PACKET PO SCH (09:50)
[2023-06-25] MEDS: ATORVASTATIN CA 40 MG TABLET (FP) PO SCH (21:30)
[2023-06-26] MEDS: ACETAMINOPHEN 500 MG TABLET (FP) PO SCH ×2 (00:40→09:27)
[2023-06-26] MEDS: KETOROLAC TROMETHAMINE 10 MG TABLET PO SCH ×2 (06:22→16:49)
[2023-06-26] MEDS: ENOXAPARIN NA (PORCINE) 40 MG/0.4 ML DISP.SYRIN SQ SCH (09:28)
[2023-06-26] MEDS: POLYETHYLENE GLYCOL (HEALTHYLAX) 3350 17 GM PACKET PO SCH (09:28)
[2023-06-26] MEDS: ATORVASTATIN CA 40 MG TABLET (FP) PO SCH (21:16)
[2023-06-27 02:03] VITALS: RESP 18
[2023-06-27] MEDS: ENOXAPARIN NA (PORCINE) 40 MG/0.4 ML DISP.SYRIN SQ SCH (09:46)
[2023-06-27] MEDS: POLYETHYLENE GLYCOL (HEALTHYLAX) 3350 17 GM PACKET PO SCH (09:46)
[2023-06-27 14:32] VITALS: BP 137/75; PULSE 97; TEMP 97.6
== END 2023-06-27 16:43 | disposition home or self-care (01) | DRG 556 ==
LOC: FER 12:32 → FM/S 16:18
PROVIDERS: ADMIT Internal Medicine
DX: R26.2 Difficulty in walking, not elsewhere classified (principal); M17.0 Bilateral primary osteoarthritis of knee; E78.00 Pure hypercholesterolemia, unspecified; W18.30XA Fall on same level, unspecified, initial encounter; Y92.098 Other place in other non-institutional residence as the place of occurrence of the external cause; Y99.9 Unspecified external cause status; Z96.652 Presence of left artificial knee joint; Z96.651 Presence of right artificial knee joint
CPT/HCPCS: 36415; 73564-TC-LT-FY; 73610-TC-LT-FY; 73630-TC-LT; 80048; 83735; 84100; 85027; 97116-GP; 99285-25